=== PATIENT | female | born 1990 | race Caucasian/White ===

== ENCOUNTER 2017-06-12 11:59 | Emergency (ER) | payer OTHER ==
[~2017-06-12] VITALS: Ht 170.2 cm; Wt 109.0 kg
[2017-06-12 12:02] VITALS: Ht 170.2 cm; Wt 109.0 kg
[2017-06-12 12:59] LABS: BASO % 0.4 %; BASO ABS # 0.03 K/uL (0-0.2); COMPLETE YES; EOS % 13.2 %; HEMATOCRIT 36.8 % (37-47); IG% 0.1 %; LYMPH ABS # 1.79 K/uL (1.2-3.4); MEAN CELL VOLUME 78.6 fL (80-100); MEAN CORPUSCULAR HEMOGLOBIN 25.2 pg (25-34); MEAN CORPUSCULAR HGB CONC 32.1 g/dl (32-36); MEAN PLATELET VOLUME 9.5 fL (7.4-10.4); MONO % 7.6 %; NEUT % 52.7 %; PLATELET COUNT 343 K/uL (130-400); RED BLOOD COUNT 4.68 M/uL (4.2-5.4); WHITE BLOOD COUNT 6.88 K/uL (4.8-10.8)
[2017-06-12 13:02] LABS: PREG INTERNAL NEGATIVE QC NEG CLEAR BACKGROUND; PREG INTERNAL POSITIVE QC POS CONTROL LINE
[2017-06-12 13:07] LABS: ALT/SGPT 44 U/L (12-78); AST/SGOT 22 U/L (15-37); BLOOD UREA NITROGEN 12 mg/dl (7-18); BUN/CREATININE RATIO 15.4 (10-20); CALCIUM 8.9 mg/dl (8.5-10.1); CARBON DIOXIDE 26 mmol/L (21-32); CHLORIDE 109 mmol/L (98-107); CREATININE 0.81 mg/dl (0.60-1.20); GLUCOSE 68 mg/dl (70-99); POTASSIUM 4.1 mmol/L (3.5-5.1); SODIUM 142 mmol/L (136-145)
[2017-06-12 13:11] VITALS: O2SAT 97
[2017-06-12 13:12] LABS: ALKALINE PHOSPHATASE 97 U/L (45-117); CKMB/CK RATIO 1.9 (0-3.0)
[2017-06-12 13:16] LABS: POINT OF CARE TROPONIN I < 0.030 ng/ml (0-0.045)
--- NOTE | 2017-06-12 13:16 | DIAGNOSTIC IMAGING REPORT ---
SINGLE VIEW CHEST CLINICAL HISTORY: Atypical chest pain. FINDINGS: An AP, portable, upright chest radiograph is obtained. No prior studies are available for comparison at the time of dictation. The examination is degraded by portable technique and patient rotation. The cardiomediastinal silhouette is unremarkable. The lungs and pleural spaces are clear. No pneumothorax is seen. The bony thorax is grossly intact. IMPRESSION: No active disease in the chest. Electronically signed by: Grzegorz French M.D. 06/12/2017 1:15 PM Dictated Date/Time: 06/12/2017 1:15 PM
[2017-06-12] MEDS ORDERED: IBUPROFEN 800 MG TAB PO STA (13:21)
[2017-06-12] MEDS ORDERED: CLIN150C PO (13:23)
[2017-06-12] MEDS ORDERED: KETOROLAC TROMETHAMINE 30 MG/ML VIAL IV STA (13:36)
[2017-06-12] MEDS ORDERED: OPTIRAY 320 IV PRN (14:00)
--- NOTE | 2017-06-12 14:42 | DIAGNOSTIC IMAGING REPORT ---
CT SCAN OF THE NECK WITH IV CONTRAST CLINICAL HISTORY: Right facial and neck swelling. COMPARISON STUDY: No priors. TECHNIQUE: Following the IV administration of 94 cc of Optiray 320, CT scan of the soft tissues of the neck was performed from the skull base to the upper chest. Images are reviewed in the axial, sagittal, and coronal planes. IV contrast was administered without complication. A dose lowering technique was utilized adhering to the principles of ALARA. CT DOSE: 507.11 mGy.cm FINDINGS: Pharynx: The nasopharynx, oropharynx, and laryngeal pharynx are normal in appearance. The pharyngeal airway is widely patent. There is no evidence of mass lesion. The vocal cords are symmetric. The parapharyngeal fat is well maintained. The prevertebral/retropharyngeal soft tissues are within normal limits. Dentition: Numerous dental caries are identified. There is a periapical lucency identified around a right mandibular molar with cortical breakthrough seen on axial image #109. No significant overlying inflammation is identified. No organized fluid collection is seen to suggest abscess. No additional periapical lucencies are identified. Lymphadenopathy: Prominent cervical lymph nodes are likely on a reactive basis. These are not pathologically enlarged by size criteria Thyroid: Normal in size and attenuation. Salivary glands: The parotid and submandibular glands are within normal limits. Brain parenchyma: The visualized brain parenchyma at the skull base is normal in appearance. Vascular structures: The carotid arteries and jugular veins are widely patent bilaterally. Skeletal structures: Imaged portions of the calvarium at the skull base are within normal limits. The cervical spine appears intact. Sinuses and mastoids: Mild mucosal thickening is seen within the maxillary antra and ethmoid sinuses. Tiny retention cysts are seen within the maxillary sinuses. The mastoid air cells are well pneumatized. Lung apices: Visualized apical lung parenchyma is clear. IMPRESSION: 1. There are numerous dental caries identified. There is a periapical lucency identified involving a right mandibular molar with associated cortical breakthrough. Follow-up with dentistry is recommended. 2. There is no significant overlying inflammatory change and no evidence of abscess. 3. Prominent cervical lymph nodes are likely on a reactive basis. These are not pathologically enlarged by size criteria. Electronically signed by: Grzegorz French M.D. 06/12/2017 2:41 PM Dictated Date/Time: 06/12/2017 2:35 PM
[2017-06-12] MEDS ORDERED: PENICILLIN HOME PACK 250MG (4)BTL PO ONE (16:30)
[2017-06-12] MEDS ORDERED: PENI250T3 PO (16:46)
[2017-06-12 16:57] VITALS: BP 146/98; PULSE 87; TEMP 36.7; O2SAT 96
--- NOTE | 2017-06-12 19:39 | EMERGENCY ROOM VISIT NOTE ---
History Report prepared by Camilo: Luis Salcedo Under the Supervision of: Dr. Hong Witt M.D. First contact with patient: 12:21 Chief Complaint: CHEST PAIN Stated Complaint: CHEST PAIN, BURNING IN THROAT Nursing Triage Summary: pt to the ED with c/o pumping breast milk and got tightness and burning in chest, sx started around 10am today hard for her to swallow and has swelling in neck and jaw and has a abcess tooth History of Present Illness The patient is a 27 year old female who presents to the Emergency Room with complaints of chest pain beginning 2.5 hours ago. The patient states that she was pumping breast milk when she suddenly began experiencing a "tightness and burning" in her chest, more right sided. She also complains of difficulty with swallowing, jaw pain, and abdominal burning. She states "my chest feels clogged ". The patient states that she has felt short of breath, but has a history of asthma and thinks this may be related. She notes that she is over 2 months post- . She states that she has been drinking a lot of water to see if anything was stuck in her throat. The patient states that she recently found to have a jaw abscess about two weeks ago and was started on Clindamycin. She states that her tooth was found to be broken. She notes that she then drove to [place] last week for a vacation. Pt denies LOC, headache, fevers, chills, diaphoresis, visual changes, neck pain, tearing pain radiating to the back, personal history or family history of aneurysm or pulmonary embolism, uncontrolled hypertension, breathing difficulties, leg swelling, coagulation abnormalities, prolonged travel, recent surgery or immobilization, nausea, vomiting, melena, hematochezia , urinary symptoms, numbness, weakness, lymphadenopathy, rash, or other complaints. She has been four times in the past, and has had one miscarriage. Source of History: patient Onset: 2.5 hours ago Position: chest Quality: burning, other ("tightness") Timing: constant Associated Symptoms: + SOB, + abdominal pain ("burning") Note: Additional symptoms: Difficulty with swallowing, and jaw pain. Review of Systems See HPI for pertinent positives and negatives. A total of ten systems were reviewed and were otherwise negative. Past Medical & Surgical Medical Problems: (1) Anxiety (2) Asthma (3) Hypertension Surgical Problems: (1) [place] teeth extracted Family History No pertinent family history stated. Social History Smoking Status: Never Smoker Housing Status: lives with family Current/Historical Medications Scheduled Clindamycin Hcl (Cleocin), 1 CAP PO QID Penicillin V Potassium (Veetids), 1 TAB PO QID Allergies Coded Allergies: No Known Allergies (Unverified , 06/12/17) Physical Exam Vital Signs Date Time Temp Pulse Resp B/P (MAP) Pulse Ox O2 Delivery O2 Flow Rate FiO2 06/12/17 16:57 36.7 87 16 146/98 96 06/12/17 16:50 87 16 146/98 96 Room Air 06/12/17 16:32 86 06/12/17 16:19 79 16 96 Room Air 06/12/17 15:34 85 16 132/109 96 Room Air 06/12/17 14:41 84 16 132/97 96 Room Air 06/12/17 13:45 160/106 06/12/17 13:42 90 15 97 06/12/17 13:31 183/123 06/12/17 13:12 81 16 98 06/12/17 13:11 97 Room Air 06/12/17 13:07 79 15 146/111 97 06/12/17 13:00 154/106 06/12/17 12:59 89 15 96 06/12/17 12:31 135/103 06/12/17 12:29 81 17 95 06/12/17 12:24 156/110 06/12/17 12:23 95 Room Air 06/12/17 12:19 97 Room Air 06/12/17 12:15 81 06/12/17 12:02 36.7 85 20 158/87 97 Room Air Physical Exam GENERAL: Awake, alert, well-appearing, in no distress HENT: Normocephalic, atraumatic. Carious right lower molar that is tender to percussion. Induration of the buccal mucosa. Mild tenderness and swelling of the body of the mandible. EYES: Normal conjunctiva. Sclera non-icteric. NECK: Supple. No nuchal rigidity. FROM. No JVD. RESPIRATORY: Clear to auscultation. CARDIAC: Regular rate, normal rhythm. Extremities warm and well perfused. Pulses equal. ABDOMEN: Soft, non-distended. No tenderness to palpation. No rebound or guarding. No masses. RECTAL: Deferred. MUSCULOSKELETAL: Chest examination reveals no tenderness. The back is symmetrical on inspection without obvious abnormality. There is no CVA tenderness to palpation. No joint edema. LOWER EXTREMITIES: Calves are equal size bilaterally and non-tender. No edema. No discoloration. NEURO: Normal sensorium. No sensory or motor deficits noted. SKIN: No rash or jaundice noted. Medical Decision & Procedures ER Provider Diagnostic Interpretation: Radiology results as stated below per my review and radiologist interpretation: CT SCAN OF THE NECK WITH IV CONTRAST FINDINGS: Pharynx: The nasopharynx, oropharynx, and laryngeal pharynx are normal in appearance. The pharyngeal airway is widely patent. There is no evidence of mass lesion. The vocal cords are symmetric. The parapharyngeal fat is well maintained. The prevertebral/retropharyngeal soft tissues are within normal limits. Dentition: Numerous dental caries are identified. There is a periapical lucency identified around a right mandibular molar with cortical breakthrough seen on axial image #109. No significant overlying inflammation is identified. No organized fluid collection is seen to suggest abscess. No additional periapical lucencies are identified. Lymphadenopathy: Prominent cervical lymph nodes are likely on a reactive basis. These are not pathologically enlarged by size criteria Thyroid: Normal in size and attenuation. Salivary glands: The parotid and submandibular glands are within normal limits. Brain parenchyma: The visualized brain parenchyma at the skull base is normal in appearance. Vascular structures: The carotid arteries and jugular veins are widely patent bilaterally. Skeletal structures: Imaged portions of the calvarium at the skull base are within normal limits. The cervical spine appears intact. Sinuses and mastoids: Mild mucosal thickening is seen within the maxillary antra and ethmoid sinuses. Tiny retention cysts are seen within the maxillary sinuses. The mastoid air cells are well pneumatized. Lung apices: Visualized apical lung parenchyma is clear. IMPRESSION: 1. There are numerous dental caries identified. There is a periapical lucency identified involving a right mandibular molar with associated cortical breakthrough. Follow-up with dentistry is recommended. 2. There is no significant overlying inflammatory change and no evidence of abscess. 3. Prominent cervical lymph nodes are likely on a reactive basis. These are not pathologically enlarged by size criteria. Electronically signed by: Grzegorz French M.D. SINGLE VIEW CHEST FINDINGS: An AP, portable, upright chest radiograph is obtained. No prior studies are available for comparison at the time of dictation. The examination is degraded by portable technique and patient rotation. The cardiomediastinal silhouette is unremarkable. The lungs and pleural spaces are clear. No pneumothorax is seen. The bony thorax is grossly intact. IMPRESSION: No active disease in the chest. Electronically signed by: Grzegorz French M.D. Laboratory Results 06/12/17 12:20 Red Blood Count 4.68, Mean Corpuscular Volume 78.6, Mean Corpuscular Hemoglobin 25.2, Mean Corpuscular Hemoglobin Concent 32.1, Mean Platelet Volume 9.5, Neutrophils (%) (Auto) 52.7, Lymphocytes (%) (Auto) 26.0, Monocytes (%) (Auto) 7.6, Eosinophils (%) (Auto) 13.2, Basophils (%) (Auto) 0.4, Neutrophils # (Auto ) 3.62, Lymphocytes # (Auto) 1.79, Monocytes # (Auto) 0.52, Eosinophils # (Auto ) 0.91, Basophils # (Auto) 0.03 06/12/17 12:20 Test 06/12/17 12:20 06/12/17 12:57 06/12/17 15:32 White Blood Count 6.88 K/uL (4.8-10.8) Red Blood Count 4.68 M/uL (4.2-5.4) Hemoglobin 11.8 g/dL (12.0-16.0) Hematocrit 36.8 % (37-47) Mean Corpuscular Volume 78.6 fL (80-100) Mean Corpuscular Hemoglobin 25.2 pg (25-34) Mean Corpuscular Hemoglobin Concent 32.1 g/dl (32-36) Platelet Count 343 K/uL (130-400) Mean Platelet Volume 9.5 fL (7.4-10.4) Neutrophils (%) (Auto) 52.7 % Lymphocytes (%) (Auto) 26.0 % Monocytes (%) (Auto) 7.6 % Eosinophils (%) (Auto) 13.2 % Basophils (%) (Auto) 0.4 % Neutrophils # (Auto) 3.62 K/uL (1.4-6.5) Lymphocytes # (Auto) 1.79 K/uL (1.2-3.4) Monocytes # (Auto) 0.52 K/uL (0.11-0.59) Eosinophils # (Auto) 0.91 K/uL (0-0.5) Basophils # (Auto) 0.03 K/uL (0-0.2) RDW Standard Deviation 42.0 fL (36.4-46.3) RDW Coefficient of Variation 14.8 % (11.5-14.5) Immature Granulocyte % (Auto) 0.1 % Immature Granulocyte # (Auto) 0.01 K/uL (0.00-0.02) Anion Gap 7.0 mmol/L (3-11) Est Creatinine Clear Calc Drug Dose 133.9 ml/min Estimated GFR () 116.2 Estimated GFR (Non- 100.2 BUN/Creatinine Ratio 15.4 (10-20) Calcium Level 8.9 mg/dl (8.5-10.1) Total Bilirubin 0.4 mg/dl (0.2-1) Direct Bilirubin < 0.1 mg/dl (0-0.2) Aspartate Amino Transf (AST/SGOT) 22 U/L (15-37) Alanine Aminotransferase (ALT/SGPT) 44 U/L (12-78) Alkaline Phosphatase 97 U/L (45-117) Total Creatine Kinase 113 U/L (26-192) Creatine Kinase MB 2.2 ng/ml (0.5-3.6) Creatine Kinase MB Ratio 1.9 (0-3.0) Total Protein 7.6 gm/dl (6.4-8.2) Albumin 3.7 gm/dl (3.4-5.0) Lipase 174 U/L (73-393) Human Chorionic Gonadotropin, Qual NEG (NEG) Bedside D-Dimer 278 ng/mlFEU (0-450) Bedside Troponin I < 0.030 ng/ml (0-0.045) Laboratory results reviewed by me Medications Administered Medications (Trade) Dose Ordered Sig/Jamison Route Start Time Stop Time Status Last Admin Dose Admin Ketorolac Tromethamine (Toradol Inj) 30 mg NOW STAT IV 06/12/17 13:36 06/12/17 13:38 DC 06/12/17 13:42 30 MG Penicillin V Potassium (Pen-Vk 250MG Home Pack) 1 homepack UD ONCE PO 06/12/17 16:30 06/12/17 16:31 DC 06/12/17 16:49 1 HOMEPACK ECG Indication: chest pain Rate (beats per minute): 76 Rhythm: normal sinus Findings: no acute ischemic change, other (Non-specific T wave abnormality) Comparison ECG Date: May 14, 2014 Change: Non-specific T wave abnormality is new. ED Course 1245: The patient was evaluated in room A4B. A complete history and physical exam was performed. 1321: Ordered Motrin Tab 800 mg PO. 1326: Ordered Toradol Inj 30 mg IV. 1622: I spoke with the patient and updated her on her test results. 1630: Ordered Pen-Vk 250 mg Homepack PO. 1645: I reevaluated the patient. Discussed results and discharge instructions: she verbalized understanding and agreement. The patient is ready for discharge. Medical Decision Triage Nursing notes reviewed. The patient's presentation and history were concerning for chest discomfort and jaw swelling. Etiologies such as dental abscess, cellulitis, deep space infection, musculoskeletal, pleurisy, costochondritis, cardiac ischemia, aortic dissection , pulmonary embolism, pneumonia, pneumothorax, infections, gastrointestinal, as well as others were entertained. The patient was evaluated. Her facial examination revealed some swelling but overall this is mild. No evidence of involvement of the floor of the mouth or tongue. No clear evidence of Tod angina. No Vincent angina. Airway patent. The patient had no acute ischemia on ECG. Her blood work revealed an unremarkable CBC and chemistry panel. She is not . The patient's d- dimer and cardiac troponin were negative. Chest imaging was unremarkable. CT imaging of the neck was performed. The patient was given Toradol. She felt better with this. Initially Motrin was ordered however the patient did not take this as it was painful to swallow. CT imaging of the soft tissue neck did not reveal any evidence of deep abscess. She has some reactive lymphadenopathy and dental caries with associated infection. The patient was treated with clindamycin but unfortunately is still having symptoms. I will treat her with penicillin. I did discuss the risks of C. difficile. The patient had a second troponin and ECG performed and these were unremarkable. This does not appear to be cardiac in nature. I suspect it the reactive adenopathy and dental infection caused most of the issues. She has some mild elevation of her blood pressure but has had high blood pressure in the past prior to her . She is over 9 weeks out from and preeclampsia is unlikely. She was previously on low-dose lisinopril. She did not want anything stronger for pain as she is breast-feeding. I did discuss the need for close blood pressure follow-up. She will contact dentistry and her primary physician tomorrow. She will likely need to be managed with blood pressure although this may be somewhat situational as she did have moderate pain. She indicated her understanding and felt very comfortable with the plan. If she worsens in any way she will be back. I gave my usual and customary discussion regarding this issue. By the evaluation outlined above other emergent etiologies such as those listed in the differential, as well as others, were deemed relatively unlikely. The patient was educated about the findings as listed above. All questions were answered and the patient was pleased with the treatment. Return instructions were outlined and the patient was discharged in stable condition. The patient was referred to dentistry and her PCP for follow-up for a recheck of the current condition. [place] Drug Monitoring Program Search Results: patient reviewed within database, no issues identified Impression Primary Impression: Right-sided chest pain Additional Impression: Dental infection Scribe Attestation The scribe's documentation has been prepared under my direction and personally reviewed by me in its entirety. I confirm that the note above accurately reflects all work, treatment, procedures, and medical decision making performed by me. Departure Information Dispostion Home / Self-Care Prescriptions Penicillin V Potassium (Veetids) 250 Mg Tab 1 TAB PO QID for 10 Days, #36 TAB Prov: Hong Witt MD 06/12/17 Referrals Wilder Villanueva M.D. (PCP) Forms HOME CARE DOCUMENTATION FORM, IMPORTANT VISIT INFORMATION Patient Instructions My [facility] Additional Instructions Penicillin (Pen VK) 250 mg: Take one pill four times daily for 10 days for your infection. All antibiotics can cause diarrhea. If this occurs and you feel worse or it does not resolve in 1-2 days follow up with your doctor or return to the Emergency Department as this could be signs of serious underlying problems. Any medication can cause an allergic reaction, stop the pills immediately and return to the ER for rash, hives, breathing difficulties, or swelling. Ibuprofen(Motrin, Advil) may be used for fever or pain. Use 600mg every six hours as needed. Take with food. Avoid using more than 2400mg in a 24 hour period. Do not use 2400mg per day for more than three consecutive days without physician direction. Prolonged inappropriate use can lead to stomach upset or ulcers. (AND/OR) Acetaminophen(Tylenol) may be used for fever or pain. Use 1000mg every six hours as needed. Avoid using more than 4000mg in a 24 hour period. Rest and drink plenty of fluids as tolerated. Continue current medications. Avoid strenuous activities and anything that worsens your pain. Resume normal activities once your symptoms resolve. Return to the ER immediately for worsening or persistent neck pain, mouth swelling, chest pain, abdominal pain, vomiting, fevers, chest pains, difficulty breathing, worsening of your condition, or as needed. Follow up with your primary physician and dentist tomorrow for a recheck of your current condition. Problem Qualifiers
== END 2017-06-12 16:58 | disposition home or self-care (01) ==
LOC: C.EDB 12:01 → C.EDA 16:58
DX: R07.9 Chest pain, unspecified (principal); K04.7 Periapical abscess without sinus; K02.9 Dental caries, unspecified; R59.0 Localized enlarged lymph nodes; J45.909 Unspecified asthma, uncomplicated; F41.9 Anxiety disorder, unspecified; I10 Essential (primary) hypertension

== ENCOUNTER 2018-02-06 04:59 | Observation (INO) | payer SELFPAY ==
[2018-01-31 08:26] VITALS: BMI 36.0
--- NOTE | 2018-01-31 08:51 | PAT Medication Instructions ---
Service Date Jan 31, 2018. Current Home Medication List Albuterol Hfa (Ventolin Hfa), 22 PUFFS INH Q6H PRN for PRN Cholecalciferol (Vitamin D3), 5,000 MG PO QAM Cyanocobalamin (Vitamin B12), 1,000 MCG PO QAM Lisinopril (Zestril), 10 MG PO QAM Multivitamin (Multivitamin), 1 TAB PO QAM Nitrofurantoin Macrocrystal (Nitrofurantoin), 100 MG PO BID Medication Instructions For Your Scheduled Surgery -Continue as directed: Nitrofurantoin Macrocrystal (Nitrofurantoin), 100 MG PO BID - Hold the following medications the morning of surgery: Cholecalciferol (Vitamin D3), 5,000 MG PO QAM Cyanocobalamin (Vitamin B12), 1,000 MCG PO QAM Lisinopril (Zestril), 10 MG PO QAM Multivitamin (Multivitamin), 1 TAB PO QAM - Take the following medications the morning of surgery with a sip of water: Albuterol Hfa (Ventolin Hfa), 22 PUFFS INH Q6H PRN for PRN (if needed, and bring with you to the hospital) - Take the following medications as scheduled the night before surgery: Albuterol Hfa (Ventolin Hfa), 22 PUFFS INH Q6H PRN for PRN (if needed) If you have any questions please call us at [phone] or [phone] or [phone]
[2018-01-31 11:18] LABS: INR 0.9 (0.9-1.1); PTT PATIENT 25.2 SECONDS (21.0-31.0)
[~2018-02-06] VITALS: Ht 170.2 cm; Wt 104.7 kg
[2018-02-06] VITALS (8 sets, daily range): BP systolic 106–133; BP diastolic 56–98; PULSE 74–110; TEMP 36.5–36.8; O2SAT 95–99; Ht 170.2 cm; Wt 104.7 kg
[~2018-02-06 04:59] MED LIST: CHOL20007 PO; CYAN100020 PO; LISI-461 PO; MULT-506 PO; NITR100C43 PO; VNTHFA/IN INH
[2018-02-06] MEDS ORDERED: CEFAZOLIN 2000MG IV PUSH 15 ML IV SCH (06:00)
[2018-02-06] MEDS ORDERED: LACTATED RINGER'S 1000ML 1,000 ML IV SCH (06:00)
[2018-02-06] MEDS ORDERED: PHENYLEPHRINE 100MCG/ML 5ML SYR IV PRN (06:45)
[2018-02-06] MEDS ORDERED: HYDROmorphone INJ 1 MG/ML SYR IV PRN (06:45)
[2018-02-06] MEDS ORDERED: EpHEDrine SULFATE INJ 50 MG/ML AMP IV PRN (06:45)
[2018-02-06] MEDS ORDERED: FENTANYL CITRATE INJ 50 MCG/1 ML 2 ML VIAL IV PRN (06:45)
[2018-02-06] MEDS ORDERED: ONDANSETRON INJ 2 MG/ML 2 ML VIAL IV PRN ×2 (06:45→11:30)
[2018-02-06] MEDS ORDERED: ATROPINE SULFATE 0.1 MG/ML 5ML SYR IV PRN (06:45)
[2018-02-06] MEDS ORDERED: PROMETHAZINE HCL INJ 12.5 MG in SODIUM CHLORIDE 0.9% 50ML 50 ML IV PRN ×2 (06:45→11:30)
--- NOTE | 2018-02-06 06:46 | History & Physical Bridge Note ---
H&P Re-Evaluation Bridge Note: I have examined the patient, reviewed the History & Physical and in the interval since the performance of the History & Physical I have noted the following changes of clinical significance: No changes noted
[2018-02-06] MEDS ORDERED: ACETAMINOPHEN 1000 MG/100 ML IV IV ONE (06:50)
[2018-02-06] MEDS ORDERED: BUPIVACAINE 0.25% 30 ML VIAL ONE (06:52)
[2018-02-06] MEDS ORDERED: LIDOCAINE/EPINEPHRINE 1% 20 ML VIAL ONE (06:53)
[2018-02-06] MEDS ORDERED: LIDOCAINE HCL 1% 20 ML VIAL ONE ×2 (06:53→07:42)
[2018-02-06] MEDS ORDERED: EpINEphrine INJ 1MG/ML AMP 1 MG/ML AMP ONE (06:54)
[2018-02-06] MEDS ORDERED: DEXAMETHASONE SOD INJ 4 MG/ML VIAL ONE (07:03)
[2018-02-06] MEDS ORDERED: LIDOCAINE HCL 2% 2 ML VIAL (20MG/ML) ONE (07:03)
[2018-02-06] MEDS ORDERED: PROPOFOL IV EMULSION 10 MG/ML 20 ML VIAL IV ONE (07:03)
[2018-02-06] MEDS ORDERED: FENTANYL CITRATE INJ 50 MCG/1 ML 2 ML VIAL ONE ×3 (07:03→12:05)
[2018-02-06] MEDS ORDERED: ONDANSETRON INJ 2 MG/ML 2 ML VIAL ONE ×2 (07:03→09:11)
[2018-02-06] MEDS ORDERED: MIDAZOLAM HCL 1 MG/ML 2ML VIAL ONE (07:03)
[2018-02-06] MEDS ORDERED: KETAMINE HCL INJ 50 MG/ML 10 ML VIAL ONE (07:05)
[2018-02-06] MEDS ORDERED: HYDROmorphone INJ 2 MG/ML SYR/VIAL ONE (07:05)
[2018-02-06] MEDS ORDERED: LARYING-O-JET KIT (LTA) ONE (07:05)
[2018-02-06] MEDS ORDERED: METOCLOPRAMIDE HCL INJ 5 MG/ML 2 ML VIAL ONE (09:11)
[2018-02-06] MEDS ORDERED: NEOSTIGMINE METHYLSULFATE 5 MG/5 ML SYR ONE (09:11)
[2018-02-06] MEDS ORDERED: GLYCOPYRROLATE INJ 0.2 MG/ML VIAL ONE (09:11)
[2018-02-06] MEDS ORDERED: DexMEDEtomidine HCL IV 100 MCG/ML VIAL IV ONE (10:39)
--- NOTE | 2018-02-06 11:14 | [facility] Post Operative Brief Note ---
Immediate Operative Summary Operative Date Feb 06, 2018. Pre-Operative Diagnosis Encounter for Cosmetic Surgery Post-Operative Diagnosis Same as Preop Procedure(s) Performed Abdominoplasty with Suction Assisted Lipectomy Surgeon Dr. Monica Kelley Spanish Literature Professor Surgeon(s) Kimberly Topete PA-C Estimated Blood Loss 25mL Findings Consistent with Post-Op Diagnosis Specimens no specimens per surgeon Dr. Monica Kelley Drains [id number] Anesthesia Type General Complication(s) none Disposition Disposition: Recovery Room / PACU
[2018-02-06] MEDS ORDERED: CEFAZOLIN IV 2,000 MG in DEXTROSE 5% 50ML 50 ML IV SCH (11:30)
[2018-02-06] MEDS ORDERED: DiphenhydrAMINE HCL 50 MG/ML VIAL IV PRN (11:30)
[2018-02-06] MEDS ORDERED: ACETAMINOPHEN 325 MG TAB PO PRN (11:30)
[2018-02-06] MEDS ORDERED: OXAZEPAM 10MG CAP PO PRN (11:30)
[2018-02-06] MEDS ORDERED: ALBUTEROL HFA 8 GM INHALER INH PRN (11:30)
[2018-02-06] MEDS ORDERED: MoRPHine SULFATE 2 MG/ML CARP IV PRN ×2 (11:30)
[2018-02-06] MEDS ORDERED: MoRPHine SULFATE 4 MG/ML 1 ML CARP\\VIAL IV PRN (11:30)
[2018-02-06] MEDS ORDERED: ROCURONIUM BROMIDE 10 MG/ML 5 ML VIAL IV ONE (11:43)
[2018-02-06] MEDS ORDERED: IV FLUIDS COMPLETED PRN (12:00)
--- NOTE | 2018-02-06 12:31 | Anesthesiology Progress Note ---
Anesthesia Post Op Note Date & Time Feb 06, 2018 at 12:31 Vital Signs Pain Intensity: 5.0 Vital Signs Past 12 Hours Date Time Temp Pulse Resp B/P (MAP) Pulse Ox O2 Delivery O2 Flow Rate FiO2 02/06/18 12:12 88 12 96 02/06/18 12:12 84 12 02/06/18 12:11 126/79 02/06/18 12:07 92 17 95 02/06/18 12:07 92 17 02/06/18 12:06 127/78 02/06/18 12:02 97 12 02/06/18 12:02 98 12 91 02/06/18 12:01 143/80 02/06/18 11:57 114 17 97 02/06/18 11:57 112 17 02/06/18 11:56 120/84 02/06/18 11:52 114 17 98 02/06/18 11:52 115 17 02/06/18 11:51 127/75 02/06/18 11:47 90 15 02/06/18 11:47 87 15 98 02/06/18 11:46 127/74 02/06/18 11:46 127/74 02/06/18 11:45 109 19 02/06/18 11:45 109 19 02/06/18 11:45 109 19 98 02/06/18 11:45 109 19 98 02/06/18 11:41 130/81 02/06/18 11:41 130/81 02/06/18 11:40 111 16 02/06/18 11:40 112 16 98 02/06/18 11:40 112 16 98 02/06/18 11:40 111 16 02/06/18 11:36 118/75 02/06/18 11:36 118/75 02/06/18 11:35 86 11 02/06/18 11:35 82 11 98 02/06/18 11:35 82 11 98 02/06/18 11:35 86 11 02/06/18 11:31 110/77 02/06/18 11:31 110/77 18 11:30 87 11 02/06/18 11:30 87 11 98 02/06/18 11:30 36.6 88 12 110/77 (84) 98 Oxymask 10 02/06/18 11:30 87 11 98 02/06/18 11:30 87 11 4/16/18 05:51 36.6 80 16 133/98 (110) 99 Room Air Notes Mental Status: alert / awake / arousable, participated in evaluation Pt Amnestic to Procedure: Yes Nausea / Vomiting: adequately controlled Pain: adequately controlled Airway Patency, RR, SpO2: stable & adequate BP & HR: stable & adequate Hydration State: stable & adequate Anesthetic Complications: no major complications apparent
[2018-02-06] MEDS: OXYCODONE/ACETAMINOPHEN 5-325 TAB PO PRN ×4 (13:36→22:41)
--- NOTE | 2018-02-06 13:44 | Discharge Instructions ---
Discharge Instructions Date of Service Feb 06, 2018. Admission Reason for Admission: Encounter for Cosmestic Surgery, Lipodystrophy Discharge Discharge Diagnosis / Problem: encounter for cosmetic surgery, lipodystrophy Discharge Goals Goal(s): Decrease discomfort, Improve function Activity Recommendations Activity Limitations: per Instructions/Follow-up section ACTIVITY RECOMMENDATIONS: __Normal activities _x_No bending, lifting or straining _x_No driving __Driving allowed when you are off pain medications _x_Walking permitted. Do not stand up straight until it is comfortable to do so. This may take a week. __You should have help at home for ___ days DRESSINGS: __No dressings required _x_Keep dressings dry/in place until first office visit. You must wear binder __Remove dressings ___ and leave dressings off __Apply ice ___ days __Remove dressings and reapply garment __Apply antibiotic ointment (Bacitracin, Neosporin, etc) to wounds 3-4 times/ day for 10 days BATHING: _x_Keep dressings dry _x_Sponge bathing permitted away from abdomen __Showering permitted _x_No swimming, hot tubs or soaking in a tub MEDICATIONS: Resume previous medications unless instructed otherwise by your surgeon. _x_Do not use aspirin, Motrin, Advil or Ibuprofen as these may promote bleeding. Please use Tylenol. _x_Prescription(s) provided: pain medication provided at your last office visit OTHER INSTRUCTIONS: _x_Record drain output 2-3 times per day. Call the office to have drain removed when it is less than 10cc/24 hours for 2 days in each drain. SPECIAL CARE INSTRUCTIONS: * It is normal to have a mild fever after surgery. If your temperature is higher than 101.5 degrees F, please call the office at [phone]. * Constipation is a typical side effect of pain medication. An over-the- counter stool softener will help relieve this. * Leaking around surgical drains may occur and should not cause concern. Sometimes these drains become clogged. If this happens, remove the bulb and milk the clot out of the tube, then replace the bulb. * Drainage from wounds after liposuction is normal and should be expected. Garments will become soiled. You should protect furniture and bedding. This drainage should mostly subside within 2-3 days. Leave garments in place unless instructed to remove them. * If you have unusual drainage from a wound or are concerned you have an infection or have any questions or concerns, please call the office at [phone]. FOLLOW UP VISIT: If not already scheduled, please call the office, , when you return home after surgery to schedule an appointment to be seen in __1_ days. . Current Hospital Diet Patient's current hospital diet: Regular Diet Discharge Diet Recommended Diet: Regular Diet Procedures Procedures Performed: Abdominoplasty with Suction Assisted Lipectomy Pending Studies Studies pending at discharge: no Medical Emergencies . Who to Call and When: Medical Emergencies: If at any time you feel your situation is an emergency, please call 911 immediately. . Non-Emergent Contact Non-Emergency issues call your: Primary Care Provider, Surgeon . "Provider Documentation" section prepared by Kimberly Topete. . [place] Drug Monitoring Program Search Results: no issues identified
--- NOTE | 2018-02-06 14:06 | OPERATIVE REPORT ---
DATE OF OPERATION: 02/06/2018 PREOPERATIVE DIAGNOSIS: Abdominal lipodystrophy with rectus diastasis. POSTOPERATIVE DIAGNOSIS: Abdominal lipodystrophy with rectus diastasis. PROCEDURE: Abdominoplasty with suction-assisted lipectomy. SURGEON: Dr. Monica Kelley NURSE MIDWIFE: Kimberly Topete PA-C ANESTHESIA: General. COMPLICATIONS: None. INDICATION FOR THE PROCEDURE: The patient is a 28-year-old female who presented to my office having had 3 prior vaginal deliveries, complaining of excess skin of the abdomen. She was noted to have a large rectus diastasis at the time of exam. We discussed performing an abdominoplasty with suction-assisted lipectomy as well as rectus plication. BRIEF DESCRIPTION OF THE PROCEDURE: Risks, benefits, and alternatives of the procedure were explained to the patient who agreed and signed consent. She was identified and marked in the preoperative holding area. She was brought to the operating room. She was positioned supine and placed under anesthesia without incident. A Peres catheter was inserted. The surgical site was prepped and draped sterilely. A time-out procedure was performed. Markings were assessed. Due to the significant degree of rectus diastasis which was present, I elected to begin the abdominoplasty portion of the procedure prior to suction-assisted lipectomy in order to be able to examine the abdominal wall prior to beginning to suction. 1% lidocaine with epinephrine was used to anesthetize the planned incision. The inferior most point of the incision was marked at 6.5 cm above the vulvar commissure. A 15 blade scalpel was used to make the incision, which extended from ASIS bilaterally and posteriorly to incorporate residual pannus at the lateral buttocks. The incision was deepened using electrocautery through dermis and subcutaneous tissue as well as Gary's fascia until the anterior abdominal wall was reached. Care was taken to perform this dissection in cephalad direction skiving the anterior abdominal wall in order to avoid entering the inguinal area. Dissection was carried along the anterior abdominal wall fascia up to the level of the umbilicus. The umbilicus was circumscribed using a 15 blade scalpel. Dissection was then continued around the umbilicus and just superiorly. At this point, there was noted to be a fairly sizable rectus diastasis about 4 fingerbreadths. Therefore, I continued dissection up to the level of the xiphoid process. Inferior to the umbilicus, the dissection was performed much more widely and a tunnel was then created in the midline above the umbilicus up to the xiphoid. I performed plication of the rectus musculature using 0 Prolene interrupted [id number] sutures. This was performed both inferior and superior to the umbilicus in the midline. Once this was accomplished, a running 0 Prolene suture was run from the umbilicus inferiorly and from the umbilicus superiorly reapproximating the edges of the rectus muscles. Two additional plication sutures were placed in a horizontal direction lateral to the umbilicus bilaterally. Following this, there was noted to be adiposity of the flanks as well as the superior abdomen. A total of 500 mL of tumescent fluid was instilled into each of these areas and a 3-mm suction cannula was used to aspirate the residual adipose tissue. A total of about 300 mL lipoaspirate were obtained. Hemostasis was achieved with electrocautery. The bed was placed in a flexed position and the abdominal flap was brought together in the midline along the inferior aspect of the incision to the vulvar commissure. Two 15-Thai Cameron drains were placed and brought out through a separate stab incision. Abdominal flaps were marked for resection. A 15 blade scalpel was used to make this incision which was deepened using electrocautery through subcutaneous fat and Gary's fascia. There was some mild residual subscarpal fat present which was removed from the abdominal flap. The tissue was removed bilaterally and passed off the field. The new umbilicus position was marked in an inverted triangle fashion. The wound was reapproximated in [id number] direction using 2-0 Vicryl Gary's fascia sutures, 2-0 Vicryl deep dermal sutures, 2-0 PDO Quill running superficial dermal suture and the skin was closed using 3-0 Monocryl running subcuticular suture. The umbilical incision was made using 15 blade scalpel and deepened using electrocautery. The umbilicus was retrieved through the incision and inset using 4-0 chromic half buried vertical and horizontal mattress sutures. Following this, a Dermabond Prineo was applied. Drains were sutured into place using 3-0 nylon suture and the umbilicus was packed using Xeroform. Dry dressings and abdominal binder were placed. Estimated blood loss 25 mL. I attest to the content of the Intraoperative Record and any orders documented therein. Any exception s are noted below.
[2018-02-06] MEDS: CEFAZOLIN IV 2,000 MG in SYRINGE 0 ML IV SCH ×2 (14:46→22:32)
--- NOTE | 2018-02-06 15:40 | Surgery Progress Note ---
Surgery Progress Note Date of Service Feb 06, 2018. Subjective Patient has good pain control- states she feels better than expected. She is resting comfortably with oxygen by nasal cannula. VSS,mild tachy. Objective Vital Signs: Date Time Temp Pulse Resp B/P (MAP) Pulse Ox O2 Delivery O2 Flow Rate FiO2 02/06/18 15:07 36.7 102 16 123/77 (92) 95 Room Air 02/06/18 14:44 36.6 98 16 109/56 (73) 95 Nasal Cannula 2.0 02/06/18 13:50 110 16 131/84 (100) 96 Nasal Cannula 2.0 02/06/18 13:20 36.5 92 18 127/79 (95) 96 Nasal Cannula 2.0 02/06/18 12:50 Nasal Cannula 2.0 02/06/18 12:50 Nasal Cannula 2.0 02/06/18 12:49 36.8 16 125/80 (95) 96 Nasal Cannula 2.0 02/06/18 12:33 91 16 02/06/18 12:33 92 16 96 02/06/18 12:31 130/83 02/06/18 12:30 36.7 87 12 130/83 (92) 97 Nasal Cannula 2 02/06/18 12:28 81 14 97 02/06/18 12:28 87 14 02/06/18 12:26 122/80 02/06/18 12:23 95 14 97 02/06/18 12:23 94 14 02/06/18 12:21 127/82 02/06/18 12:18 91 14 02/06/18 12:18 88 14 97 02/06/18 12:16 139/84 02/06/18 12:13 92 12 02/06/18 12:13 92 12 97 02/06/18 12:12 88 12 96 02/06/18 12:12 84 12 02/06/18 12:11 126/79 02/06/18 12:07 92 17 95 02/06/18 12:07 92 17 02/06/18 12:06 127/78 02/06/18 12:02 97 12 02/06/18 12:02 98 12 91 02/06/18 12:01 143/80 02/06/18 11:57 114 17 97 02/06/18 11:57 112 17 02/06/18 11:56 120/84 02/06/18 11:52 114 17 98 02/06/18 11:52 115 17 02/06/18 11:51 127/75 02/06/18 11:47 90 15 02/06/18 11:47 87 15 98 02/06/18 11:46 127/74 02/06/18 11:46 127/74 02/06/18 11:45 109 19 02/06/18 11:45 109 19 02/06/18 11:45 109 19 98 02/06/18 11:45 109 19 98 02/06/18 11:41 130/81 02/06/18 11:41 130/81 02/06/18 11:40 111 16 02/06/18 11:40 112 16 98 02/06/18 11:40 112 16 98 02/06/18 11:40 111 16 02/06/18 11:36 118/75 02/06/18 11:36 118/75 02/06/18 11:35 86 11 02/06/18 11:35 82 11 98 02/06/18 11:35 82 11 98 02/06/18 11:35 86 11 02/06/18 11:31 110/77 02/06/18 11:31 110/77 02/06/18 11:30 87 11 02/06/18 11:30 87 11 98 02/06/18 11:30 36.6 88 12 110/77 (84) 98 Oxymask 10 02/06/18 11:30 87 11 98 02/06/18 11:30 87 11 02/06/18 05:51 36.6 80 16 133/98 (110) 99 Room Air Physical Exam: Cameron drainage (serous and bloody. 20/25cc) General Appearance: WD/WN, no apparent distress Abdomen: non distended, soft Incision(s): clean, dry, intact Assessment & Plan s/p abdominoplasty with suction assisted lipectomy of abdomen and flanks 1. doing well. reviewed post-op instructions. 2. expect patient to go home tomorrow
[2018-02-06] MEDS: LACTATED RINGER'S 1000ML 1,000 ML IV SCH ×2 (19:38→19:39)
[2018-02-06] MEDS ORDERED: NURSING VERBAL MED ORDER ONE (19:45)
[2018-02-07] MEDS: OXYCODONE/ACETAMINOPHEN 5-325 TAB PO PRN ×4 (03:12→15:29)
[2018-02-07 03:41] VITALS: BP 114/76; PULSE 81; TEMP 36.6; O2SAT 97
[2018-02-07 06:00] VITALS: O2SAT 93
[2018-02-07 07:17] VITALS: BP 112/78; PULSE 71; TEMP 37; O2SAT 94
[2018-02-07 07:30] VITALS: O2SAT 94
[2018-02-07] MEDS: LACTATED RINGER'S 1000ML 1,000 ML IV SCH (07:42)
--- NOTE | 2018-02-07 07:45 | Surgery Progress Note ---
Surgery Progress Note Date of Service Feb 07, 2018. Subjective Post OP Day: 1 + feeling well, + ambulating, + pain controlled, + diet (regular), No complaints , No nausea, No vomiting Objective Vital Signs: Date Time Temp Pulse Resp B/P (MAP) Pulse Ox O2 Delivery O2 Flow Rate FiO2 02/07/18 07:17 37.0 71 15 112/78 (89) 94 Room Air 02/07/18 06:00 93 Room Air 02/07/18 03:41 36.6 81 16 114/76 (89) 97 Nasal Cannula 1.0 02/07/18 00:28 Nasal Cannula 1.0 02/06/18 23:19 36.5 74 14 106/69 (81) 97 Nasal Cannula 2.0 02/06/18 15:47 36.6 97 18 111/67 (82) 96 Room Air 02/06/18 15:45 Nasal Cannula 2.0 02/06/18 15:07 36.7 102 16 123/77 (92) 95 Room Air 02/06/18 14:44 36.6 98 16 109/56 (73) 95 Nasal Cannula 2.0 02/06/18 13:50 110 16 131/84 (100) 96 Nasal Cannula 2.0 02/06/18 13:20 36.5 92 18 127/79 (95) 96 Nasal Cannula 2.0 02/06/18 12:50 Nasal Cannula 2.0 02/06/18 12:50 Nasal Cannula 2.0 02/06/18 12:49 36.8 16 125/80 (95) 96 Nasal Cannula 2.0 02/06/18 12:33 91 16 02/06/18 12:33 92 16 96 02/06/18 12:31 130/83 02/06/18 12:30 36.7 87 12 130/83 (92) 97 Nasal Cannula 2 02/06/18 12:28 81 14 97 02/06/18 12:28 87 14 02/06/18 12:26 122/80 02/06/18 12:23 95 14 97 02/06/18 12:23 94 14 02/06/18 12:21 127/82 02/06/18 12:18 91 14 02/06/18 12:18 88 14 97 02/06/18 12:16 139/84 02/06/18 12:13 92 12 02/06/18 12:13 92 12 97 18 12:12 88 12 96 18 12:12 84 12 18 12:11 126/79 18 12:07 92 17 95 18 12:07 92 17 18 12:06 127/78 18 12:02 97 12 18 12:02 98 12 91 02/06/18 12:01 143/80 02/06/18 11:57 114 17 97 18 11:57 112 17 18 11:56 120/84 02/06/18 11:52 114 17 98 18 11:52 115 17 18 11:51 127/75 18 11:47 90 15 02/06/18 11:47 87 15 98 02/06/18 11:46 127/74 18 11:46 127/74 18 11:45 109 19 18 11:45 109 19 02/06/18 11:45 109 19 98 18 11:45 109 19 98 18 11:41 130/81 18 11:41 130/81 18 11:40 111 16 02/06/18 11:40 112 16 98 18 11:40 112 16 98 18 11:40 111 16 18 11:36 118/75 18 11:36 118/75 18 11:35 86 11 02/06/18 11:35 82 11 98 18 11:35 82 11 98 18 11:35 86 11 18 11:31 110/77 1618 11:31 110/77 18 11:30 87 11 18 11:30 87 11 98 18 11:30 36.6 88 12 110/77 (84) 98 Oxymask 10 18 11:30 87 11 98 1618 11:30 87 11 Physical Exam: Cameron drainage (bloody and serous, 15/20cc) General Appearance: WD/WN, no apparent distress Incision(s): clean, dry, intact, no erythema Laboratory Results: Results Past 24 Hours Test 02/07/18 07:37 Range/Units Assessment & Plan s/p abdominoplasty with suction assisted lipectomy of abdomen and flanks 1. doing well. reviewed post-op instructions. 2. d/c home today, f/u in office tomorrow
--- NOTE | 2018-02-07 07:50 | Anesthesiology Progress Note ---
Anesthesia Post Op Note Date & Time Feb 07, 2018 at 07:50 Vital Signs Vital Signs Past 12 Hours Date Time Temp Pulse Resp B/P (MAP) Pulse Ox O2 Delivery O2 Flow Rate FiO2 02/07/18 07:17 37.0 71 15 112/78 (89) 94 Room Air 02/07/18 06:00 93 Room Air 02/07/18 03:41 36.6 81 16 114/76 (89) 97 Nasal Cannula 1.0 02/07/18 00:28 Nasal Cannula 1.0 02/06/18 23:19 36.5 74 14 106/69 (81) 97 Nasal Cannula 2.0 Notes Mental Status: alert / awake / arousable, participated in evaluation Pt Amnestic to Procedure: Yes Nausea / Vomiting: adequately controlled Pain: adequately controlled Airway Patency, RR, SpO2: stable & adequate BP & HR: stable & adequate Hydration State: stable & adequate Anesthetic Complications: no major complications apparent
[2018-02-07 07:53] LABS: BASO % 0.1 %; BASO ABS # 0.01 K/uL (0-0.2); EOS % 0.2 %; EOS ABS # 0.02 K/uL (0-0.5); HEMATOCRIT 33.2 % (37-47); HEMOGLOBIN 10.7 g/dL (12.0-16.0); IG# 0.02 K/uL (0.00-0.02); LYMPH % 23.4 %; MEAN CELL VOLUME 82.8 fL (80-100); MEAN CORPUSCULAR HEMOGLOBIN 26.7 pg (25-34); MEAN CORPUSCULAR HGB CONC 32.2 g/dl (32-36); MEAN PLATELET VOLUME 9.1 fL (7.4-10.4); MONO % 6.4 %; MONO ABS # 0.68 K/uL (0.11-0.59); NEUT % 69.7 %; NEUT ABS # 7.45 K/uL (1.4-6.5); PLATELET COUNT 355 K/uL (130-400); RED CELL DISTRIBUTION WIDTH CV 14.6 % (11.5-14.5); RED CELL DISTRIBUTION WIDTH SD 44.2 fL (36.4-46.3); WHITE BLOOD COUNT 10.68 K/uL (4.8-10.8)
[2018-02-07 08:00] LABS: PTT PATIENT 25.9 SECONDS (21.0-31.0)
[2018-02-07 08:32] LABS: CALCIUM 8.6 mg/dl (8.5-10.1); CREATININE 0.61 mg/dl (0.60-1.20); POTASSIUM 4.1 mmol/L (3.5-5.1)
[2018-02-07] MEDS ORDERED: ENOXAPARIN 40 MG/0.4 ML SYR SQ SCH (09:00)
[2018-02-07] MEDS ORDERED: LISINOPRIL 10 MG TAB PO SCH (09:00)
[2018-02-07] MEDS ORDERED: MULTIVITAMIN TAB PO SCH ×2 (09:00)
[2018-02-07 11:10] VITALS: BP 112/78; PULSE 71; TEMP 37; O2SAT 94
[2018-02-07 11:17] VITALS: BP 105/73; PULSE 76; TEMP 36.7; O2SAT 96
--- NOTE | 2018-02-09 14:46 | Discharge Summary ---
Discharge Summary Date of Service Feb 09, 2018. Admission Date/Reason Feb 06, 2018 at 12:54 Encounter for Cosmestic Surgery, Lipodystrophy. Discharge Date/Disposition Feb 07, 2018 Home Diagnosis Principal Diagnosis: encounter for cosmetic surgery Procedure(s) Performed abdominoplasty with suction assisted lipectomy of abdomen and flanks Medication Reconciliation Continued Medications: Albuterol Hfa (Ventolin Hfa) 200 Puffs/10027 Mcg Aers 22 PUFFS INH Q6H PRN for PRN, #1 INHALER Cholecalciferol (Vitamin D3) 2,000 Unit Tab 5000 MG PO QAM for 90 Days, TAB 3 Refills Cyanocobalamin (Vitamin B12) 1,000 Mcg Tab 1000 MCG PO QAM Lisinopril (Zestril) 10 Mg Tab 10 MG PO QAM, TAB Multivitamin (Multivitamin) Tab 1 TAB PO QAM, TAB Admission Physical Exam As per Admitting History & Physical. Hospital Course Patient presented to [facility] with history of lipodystrophy of her abdomen and flanks. She was taken to the OR and underwent abdominoplasty with suction assisted lipectomy or abdomen and flanks. She had isaac and 2 gilbert drains placed. On POD#1, the patient had her isaac removed and was successful with voiding. She was tolerated a regualr diet and pain controlled on PO narcotic pain medication. On exam, her incisions were clean, dry, intact and drains had serosanguineous output. She was discharged home with instructions to follow-up in the office the following day. Discharge Instructions Please refer to the electronic Patient Visit Report (Discharge Instructions) for additional information.
== END 2018-02-07 15:45 | disposition home or self-care (01) ==
LOC: C.ACU 04:59 → ENRESERV 12:04 → C.MSW 12:54
PROVIDERS: ADMIT Plastic Surgery; ATTEND Plastic Surgery
DX: Z41.1 Encounter for cosmetic surgery (principal); E88.1 Lipodystrophy, not elsewhere classified; M62.08 Separation of muscle (nontraumatic), other site; I10 Essential (primary) hypertension; J45.909 Unspecified asthma, uncomplicated; M19.90 Unspecified osteoarthritis, unspecified site; E66.9 Obesity, unspecified; K21.9 Gastro-esophageal reflux disease without esophagitis; R00.0 Tachycardia, unspecified; Z82.49 Family history of ischemic heart disease and other diseases of the circulatory system; Z83.3 Family history of diabetes mellitus